=== PATIENT | male | born 1975 | race Caucasian/White ===

== ENCOUNTER 2016-12-22 19:10 | Emergency (ER) | payer SELFPAY ==
[~2016-12-22] VITALS: Ht 182.9 cm; Wt 74.0 kg
[2016-12-22 19:13] VITALS: BP 137/101
== END 2016-12-22 22:41 | disposition left against medical advice (07) ==
LOC: EME 19:10
DX: F10.129 Alcohol abuse with intoxication, unspecified (principal); Z53.21 Procedure and treatment not carried out due to patient leaving prior to being seen by health care provider